=== PATIENT | female | born 1995 | race Caucasian/White ===

== ENCOUNTER 2020-02-29 10:18 | Day surgery (SDC) | payer BC ==
[2020-02-27 16:44] VITALS: BMI 19.5
[2020-02-29 12:15] VITALS: TEMP 98
[2020-02-29 12:29] VITALS: BP 121/65; PULSE 71
== END 2020-02-29 12:32 | disposition home or self-care (01) ==
LOC: FASU-ENDO 10:18
PROVIDERS: ATTEND Internal Medicine Gastroenterology
PROC: 0DB68ZX Excision of Stomach, Via Natural or Artificial Opening Endoscopic, Diagnostic (ICD-10-PCS; 2020-02-29)
PROC: 0DB48ZX Excision of Esophagogastric Junction, Via Natural or Artificial Opening Endoscopic, Diagnostic (ICD-10-PCS; 2020-02-29)
PROC: 0DB98ZX Excision of Duodenum, Via Natural or Artificial Opening Endoscopic, Diagnostic (ICD-10-PCS; principal; 2020-02-29 11:38)
DX: K29.50 Unspecified chronic gastritis without bleeding (principal); K31.9 Disease of stomach and duodenum, unspecified; K21.9 Gastro-esophageal reflux disease without esophagitis; R10.13 Epigastric pain
CPT/HCPCS: 84703; 88305-TC; 88342-TC